=== PATIENT | female | born 1970 | race African-American/Black ===

== ENCOUNTER → 2017-01-07 | Outpatient (CLI) | payer OTHER ==
[~2017-01-07] MED LIST: ALLERGY INJECTIONS SUBQ; B-COMPLEX-VITA1 EACH PO; PRILOSEC PO; VIT B-12 PO; VITAMIN A PO; VITAMIN A25000 UNIT PO; VITAMIN D10000 UNIT PO
--- NOTE | ~2017-01-07 | MY29 ---
[facility] A Service of [facility] RADIOLOGY TEXT RESULTS PATIENT: ROLANDO PIEDRA LOCATION: [facility] : 74 UNIT #: [id number] AGE: [address]: Leon Desir MD SEX: F ORDER DR: [id number] [facility]. [place], [place] [address] [id number] O MR#: [id number] Acc #: [id number] NAME: ROLANDO PIEDRA : 1970 SEX: F STUDY DATE/TIME: 01/07/2017 7:44 UNIT: [facility] ROOM: STUDY DESCRIPTION: MY PHOEBE SCREENING W/ CAD BILAT Attending Physician: Leon Desir M.D. Referring Physician: Leon Desir M.D. Ordering Physician: Leon Desir M.D. Primary Care Physician: Leon Desir M.D. MEDICAL IMAGING REPORT This report is preliminary unless electronic signature is present EXAM Bilateral digital screening mammogram with CAD 01/07/2017 HISTORY 46-year-old female with no personal or family history of breast cancer or current complaints. History of bilateral breast reduction surgery in February 2011. COMPARISON Bilateral screening mammogram 08/31/2014 and 06/17/2013 performed at [facility]. FINDINGS CC and MLO views were obtained of each breast utilizing digital technique and reviewed with an FDA-approved CAD device. Heterogeneously dense fibroglandular tissue is present bilaterally, greatest in the superior right breast, unchanged from prior. No new or suspicious nodule is seen. Scattered but benign-appearing calcifications are present within each breast, but no new suspicious clustered microcalcification is identified. Presumed postsurgical architectural distortion features within the inferomedial aspects of each breast probably related to reduction mammoplasty, but no nonsurgical architectural distortion is seen. IMPRESSION BIRADS 2. Benign findings. Routine bilateral screening mammogram is recommended in year. Patients over the age of 40 are entered into a reminder system with target due date for the next mammogram. A result letter will also be sent to the [facility] A Service of [facility] RADIOLOGY TEXT RESULTS PATIENT: ROLANDO PIEDRA [id number] : 74 UNIT #: [id number] AGE: [address]: Leon Desir MD SEX: F ORDER DR: patient. BIRADS: 2 - Benign finding Dictated by... Isabella Crawford M.D. THIS IS AN ELECTRONICALLY VERIFIED REPORT Isabella Crawford M.D. at 01/09/2017 8:32 AM MARK/joseline TD: 01/08/2017 16:37 JOB #: [id number] MEDICAL IMAGING REPORT Page 1 of 1 COPY
== END | disposition home or self-care (01) ==
LOC: CWCC 07:28
DX: Z12.31 Encounter for screening mammogram for malignant neoplasm of breast (principal); Z98.890 Other specified postprocedural states
CPT/HCPCS: G0202